=== PATIENT | female | born 1970 | race Caucasian/White ===

== ENCOUNTER 2017-07-17 10:52 | Emergency (ER) | payer OTHER ==
[~2017-07-17] VITALS: Ht 165.1 cm; Wt 86.2 kg
[2017-07-17] MEDS ORDERED: WELLBUTRIN XL300 MG PO (11:11)
[2017-07-17] MEDS ORDERED: ABILIFY30 MG PO (11:11)
[2017-07-17] MEDS ORDERED: CLONAZEPAM 0.50.5 M1 PO (11:11)
[2017-07-17] MEDS ORDERED: ZOLOFT50 MG PO (11:12)
[2017-07-17] MEDS ORDERED: TOPAMAX 100 MG100 MG PO (11:12)
[2017-07-17 12:08] LABS: ABSOLUTE BASOPHILS 0.1 thou/uL (0.0-0.2); ABSOLUTE EOSINOPHILS 0.2 thou/uL (0.0-0.7); ABSOLUTE LYMPHOCYTES 2.8 thou/uL (0.8-5.3); ABSOLUTE MONOCYTES 0.8 thou/uL (0.0-1.2); BASOPHILS 0.8 %; EOSINOPHILS 1.6 %; HEMATOCRIT 38.5 % (37.0-47.0); HEMOGLOBIN 12.7 gm/dL (12.0-15.0); LYMPHOCYTES 23.6 %; MCH 31.9 pg (26.0-34.0); MCV 96.8 fL (80.0-100.0); MONOCYTES 6.6 %; MPV 8.7 fl. (7.2-11.1); NUCLEATED RBCS 0 /100WBC; PLATELET COUNT* 215 thou/uL (150-400); POLYS 67.4 %; RBC 3.98 mil/uL (4.20-5.00); RDW-CV 13.1 % (10.5-14.5); WBC 11.9 thou/uL (4.0-11.0)
[2017-07-17 12:12] LABS: POTASSIUM 4.1 mmol/L (3.5-5.1)
[2017-07-17 12:17] LABS: ALBUMIN 3.7 g/dL (3.4-5.0); TOTAL BILIRUBIN 0.2 mg/dL (<0.1-1.0); TOTAL PROTEIN 7.6 g/dL (6.4-8.2)
[2017-07-17] MEDS ORDERED: CLEOCIN HCL300 MG PO (13:33)
[2017-07-17 13:38] VITALS: BP 120/69
== END 2017-07-17 13:39 | disposition home or self-care (01) ==
LOC: M.ERS 10:52
PROVIDERS: Nurse Practitioner Family
DX: S91.331A Puncture wound without foreign body, right foot, initial encounter (principal); L03.115 Cellulitis of right lower limb; F31.9 Bipolar disorder, unspecified; F41.9 Anxiety disorder, unspecified; M19.90 Unspecified osteoarthritis, unspecified site; J45.909 Unspecified asthma, uncomplicated; Z88.5 Allergy status to narcotic agent; Z88.8 Allergy status to other drugs, medicaments and biological substances; W22.8XXA Striking against or struck by other objects, initial encounter; Y93.89 Activity, other specified; Y92.89 Other specified places as the place of occurrence of the external cause; Y99.8 Other external cause status

== ENCOUNTER 2018-08-23 20:34 | Emergency (ER) | payer OTHER ==
[~2018-08-23] VITALS: Ht 165.1 cm; Wt 86.2 kg
[~2018-08-23 20:34] MED LIST: ABILIFY30 MG PO; CLEOCIN HCL300 MG PO; CLONAZEPAM 0.50.5 M1 PO; TOPAMAX 100 MG100 MG PO; WELLBUTRIN XL300 MG PO; ZOLOFT50 MG PO
[2018-08-23] MEDS ORDERED: VRAYLAR3 MG PO (20:57)
[2018-08-23] MEDS ORDERED: ATIVAN1 MG PO (21:00)
[2018-08-23 22:06] VITALS: BP 140/59
== END 2018-08-23 21:58 | disposition home or self-care (01) ==
LOC: M.ERS 20:34
DX: F44.4 Conversion disorder with motor symptom or deficit (principal); F31.9 Bipolar disorder, unspecified; F41.9 Anxiety disorder, unspecified; J45.909 Unspecified asthma, uncomplicated; M19.90 Unspecified osteoarthritis, unspecified site; Z88.5 Allergy status to narcotic agent; Z88.8 Allergy status to other drugs, medicaments and biological substances

== ENCOUNTER 2019-03-30 15:06 | Emergency (ER) | payer OTHER ==
[~2019-03-30] VITALS: Ht 165.1 cm; Wt 89.4 kg
[~2019-03-30 15:06] MED LIST changes: +ATIVAN1 MG PO; +VRAYLAR3 MG PO
[2019-03-30] MEDS ORDERED: BIPOLAR MEDICATION (15:25)
[2019-03-30] MEDS ORDERED: LITHATE5 MG PO (15:25)
[2019-03-30] MEDS ORDERED: ABILIFY 5 MG TAB5 MG PO (15:26)
[2019-03-30] MEDS ORDERED: KLONOPIN1 MG PO (15:26)
[2019-03-30 15:44] LABS: ABSOLUTE BASOPHILS 0.1 thou/uL (0.0-0.2); ABSOLUTE EOSINOPHILS 0.1 thou/uL (0.0-0.7); ABSOLUTE LYMPHOCYTES 2.3 thou/uL (0.8-5.3); ABSOLUTE MONOCYTES 0.6 thou/uL (0.0-1.2); ABSOLUTE NEUTROPHILS 11.7 thou/uL (1.6-8.1); BASOPHILS 0.6 %; EOSINOPHILS 0.9 %; HEMATOCRIT 42.8 % (37.0-47.0); HEMOGLOBIN 14.6 gm/dL (12.0-15.0); LYMPHOCYTES 15.2 %; MCH 32.4 pg (26.0-34.0); MCHC 34.1 g/dL (28.0-37.0); MCV 95.1 fL (80.0-100.0); MONOCYTES 4.4 %; MPV 8.4 fl. (7.2-11.1); NUCLEATED RBCS 0 /100WBC; PLATELET COUNT* 326 thou/uL (150-400); POLYS 78.9 %; RDW-CV 12.7 % (10.5-14.5); WBC 14.8 thou/uL (4.0-11.0)
[2019-03-30 15:52] LABS: CALCIUM 8.7 mg/dL (8.5-10.1); CREATININE 1.1 mg/dL (0.6-1.3); POTASSIUM 3.7 mmol/L (3.5-5.1)
[2019-03-30 15:53] LABS: APTT 24.5 Seconds (25.0-31.3); PROTIME 10.1 Seconds (9.20-11.50)
[2019-03-30 16:03] LABS: ALBUMIN 3.8 g/dL (3.4-5.0); TOTAL BILIRUBIN 0.4 mg/dL (<0.1-1.0); TOTAL PROTEIN 7.9 g/dL (6.4-8.2)
[2019-03-30 16:05] LABS: URINE BLOOD 3+ (Negative); URINE CLARITY CLEAR; URINE COLOR YELLOW; URINE GLUCOSE-RANDOM NEGATIVE (Negative); URINE KETONES NEGATIVE (Negative); URINE LEUKOCYTES-REFLEX NEGATIVE (Negative); URINE NITRITE-REFLEX NEGATIVE (Negative); URINE PROTEIN TRACE (Negative); URINE SPECIFIC GRAVITY 1.025 (1.005-1.030); URINE UROBILINOGEN 0.2 E.U./dl (0.2-1.0)
[2019-03-30 16:10] LABS: ICTOTEST (BILI CONFIRMATORY) Negative (Negative); URINE BILIRUBIN 1+ (Negative)
[2019-03-30 16:12] LABS: MUCUS 4-6 Moderate strn/LPF (None Seen); SQUAMOUS >10 Many /LPF (0-3)
[2019-03-30 16:13] LABS: URINE RBC 3-10 Few /HPF (0-2); URINE WBC-REFLEX 0-5 Rare /HPF (0-5)
[2019-03-30 16:14] LABS: CASTS None Seen /LPF (None Seen); CRYSTALS None Seen /LPF (None Seen)
[2019-03-30 16:59] VITALS: BP 124/69
[2019-03-30] MEDS ORDERED: ZOFRAN ODT4 MG SUBLING (17:01)
--- NOTE | 2019-03-31 13:08 | EKG ---
[place] [address] ELECTROCARDIOGRAM REPORT Name: JARRELL MCKNIGHT Room: [facility]#: [id number] Admission: 03/30/19 Attend Phys: Discharge: 03/30/19 Date of : 66 Report #: [id number] THIS REPORT FOR: //name// [facility] ED Test Date: 2019-03-30 Test Time: 15:28:44 Pat Name: JARRELL MCKNIGHT Department: Room: Gender: F Physician Representative: EDNA : 1970 Requested By: Juvencio Hubbard Order Number: [id number] MD: Darirn Roach Measurements Intervals [place] Rate: 89 P: 59 CO: 135 QRS: 64 QRSD: 91 T: 72 QT: 368 QTc: 448 Interpretive Statements Sinus rhythm nonspecific st changes Low voltage, precordial leads Baseline wander in lead(s) I,III,aVR,aVL No previous ECG available for comparison Electronically Signed On 03-31-2019 13:08:19 FRONT END APPLICATION DEVELOPER by Darrin Roach [email or web address] <ELECTRONICALLY SIGNED> By: Darrin Roach MD, [facility] 03/31/19 1308 1528 1528 Darrin Roach MD, [facility] /EPI
== END 2019-03-30 17:02 | disposition home or self-care (01) ==
LOC: M.ERS 15:06
PROVIDERS: Family Medicine
DX: B34.9 Viral infection, unspecified (principal); R11.2 Nausea with vomiting, unspecified; F31.9 Bipolar disorder, unspecified; Z88.5 Allergy status to narcotic agent; Z88.1 Allergy status to other antibiotic agents; Z88.2 Allergy status to sulfonamides; Z88.8 Allergy status to other drugs, medicaments and biological substances; Z98.890 Other specified postprocedural states

== ENCOUNTER 2019-04-17 15:52 | Emergency (ER) | payer OTHER ==
[~2019-04-17] VITALS: Ht 165.1 cm; Wt 88.9 kg
[~2019-04-17 15:52] MED LIST changes: +ABILIFY 5 MG TAB5 MG PO; +BIPOLAR MEDICATION; +KLONOPIN1 MG PO; +LITHATE5 MG PO; +ZOFRAN ODT4 MG SUBLING
[2019-04-17] MEDS ORDERED: WELLBUTRIN SR150 MG PO (16:20)
[2019-04-17] MEDS ORDERED: LITHIUM CARBON300 M6 PO (16:20)
[2019-04-17] MEDS ORDERED: HYDROXYZINE HCL25 M2 PO (16:21)
[2019-04-17] MEDS ORDERED: LAMOTRIGINE250 MG PO (16:21)
[2019-04-17 16:52] LABS: INFLUENZA A ANTIGEN Negative (Negative); INFLUENZA B ANTIGEN Negative (Negative)
[2019-04-17 17:21] LABS: URINE BILIRUBIN NEGATIVE (Negative); URINE BLOOD 2+ (Negative); URINE CLARITY CLEAR; URINE COLOR YELLOW; URINE GLUCOSE-RANDOM NEGATIVE (Negative); URINE KETONES NEGATIVE (Negative); URINE LEUKOCYTES-REFLEX NEGATIVE (Negative); URINE NITRITE-REFLEX NEGATIVE (Negative); URINE PROTEIN NEGATIVE (Negative); URINE SPECIFIC GRAVITY >= 1.030 (1.005-1.030); URINE UROBILINOGEN 0.2 E.U./dl (0.2-1.0)
[2019-04-17 17:26] LABS: HEMATOCRIT 43.2 % (37.0-47.0); HEMOGLOBIN 14.3 gm/dL (12.0-15.0); MCH 31.6 pg (26.0-34.0); MCHC 33.2 g/dL (28.0-37.0); MCV 95.2 fL (80.0-100.0); MPV 8.4 fl. (7.2-11.1); NUCLEATED RBCS 0 /100WBC; PLATELET COUNT* 299 thou/uL (150-400); RBC 4.54 mil/uL (4.20-5.00); WBC 13.3 thou/uL (4.0-11.0)
[2019-04-17 17:32] LABS: CALCIUM 8.5 mg/dL (8.5-10.1); CREATININE 1.1 mg/dL (0.6-1.3); POTASSIUM 3.9 mmol/L (3.5-5.1)
[2019-04-17 17:35] LABS: MUCUS >6 Heavy strn/LPF (None Seen); SQUAMOUS >10 Many /LPF (0-3)
[2019-04-17 17:36] LABS: CRYSTALS None Seen /LPF (None Seen); URINE RBC 3-10 Few /HPF (0-2); URINE WBC-REFLEX 0-5 Rare /HPF (0-5)
[2019-04-17 17:36] LABS: ALBUMIN 3.6 g/dL (3.4-5.0); TOTAL BILIRUBIN 0.6 mg/dL (<0.1-1.0); TOTAL PROTEIN 7.3 g/dL (6.4-8.2)
[2019-04-17 17:37] LABS: CASTS None Seen /LPF (None Seen)
[2019-04-17] MEDS ORDERED: ZOFRAN ODT4 MG PO (17:55)
[2019-04-17 18:03] LABS: ABSOLUTE LYMPHOCYTES 1.1 thou/uL (0.8-5.3); ABSOLUTE MONOCYTES 0.4 thou/uL (0.0-1.2); ABSOLUTE NEUTROPHILS 11.8 thou/uL (1.6-8.1); PLATELET ESTIMATE ADEQUATE
[2019-04-17 18:04] VITALS: BP 111/70
== END 2019-04-17 18:04 | disposition home or self-care (01) ==
LOC: M.ERS 15:52
PROVIDERS: Emergency Medicine
DX: K52.9 Noninfective gastroenteritis and colitis, unspecified (principal); F31.9 Bipolar disorder, unspecified; Z88.1 Allergy status to other antibiotic agents; Z88.2 Allergy status to sulfonamides; Z88.5 Allergy status to narcotic agent; Z88.8 Allergy status to other drugs, medicaments and biological substances; Z98.51 Tubal ligation status; Z98.890 Other specified postprocedural states

== ENCOUNTER 2019-10-19 21:20 | Emergency (ER) | payer OTHER ==
[~2019-10-19] VITALS: Ht 165.1 cm; Wt 95.3 kg
[~2019-10-19 21:20] MED LIST changes: +HYDROXYZINE HCL25 M2 PO; +LAMOTRIGINE250 MG PO; +LITHIUM CARBON300 M6 PO; +WELLBUTRIN SR150 MG PO; +ZOFRAN ODT4 MG PO
[2019-10-19] MEDS ORDERED: PROGESTERO50 MG/1 M3 IM (21:31)
[2019-10-19] MEDS ORDERED: PREMARIN0.45 MG PO (21:31)
[2019-10-19] MEDS ORDERED: PROGESTERONE100 MG PO (21:41)
[2019-10-19 21:42] LABS: URINE BILIRUBIN NEGATIVE (Negative); URINE BLOOD 1+ (Negative); URINE COLOR YELLOW; URINE GLUCOSE-RANDOM NEGATIVE (Negative); URINE KETONES NEGATIVE (Negative); URINE LEUKOCYTES-REFLEX NEGATIVE (Negative); URINE NITRITE-REFLEX NEGATIVE (Negative); URINE PROTEIN NEGATIVE (Negative); URINE SPECIFIC GRAVITY 1.015 (1.005-1.030); URINE UROBILINOGEN 0.2 E.U./dl (0.2-1.0)
[2019-10-19 21:43] LABS: URINE CLARITY HAZY
[2019-10-19 21:51] LABS: BACTERIA-REFLEX None Seen /HPF (None Seen); CASTS None Seen /LPF (None Seen); CRYSTALS None Seen /LPF (None Seen); SQUAMOUS 0-3 Few /LPF (0-3); URINE RBC 0-2 Rare /HPF (0-2); URINE WBC-REFLEX None Seen /HPF (0-5)
[2019-10-19 22:07] LABS: HEMATOCRIT 38.8 % (37.0-47.0); HEMOGLOBIN 13.3 gm/dL (12.0-15.0); MCH 32.4 pg (26.0-34.0); MCHC 34.2 g/dL (28.0-37.0); MCV 94.6 fL (80.0-100.0); MPV 8.4 fl. (7.2-11.1); NUCLEATED RBCS 0 /100WBC; PLATELET COUNT* 274 thou/uL (150-400); RDW-CV 13.1 % (10.5-14.5); WBC 10.6 thou/uL (4.0-11.0)
[2019-10-19 22:15] LABS: CALCIUM 8.3 mg/dL (8.5-10.1); CREATININE 1.1 mg/dL (0.6-1.3); POTASSIUM 3.9 mmol/L (3.5-5.1)
[2019-10-19 22:46] LABS: ABSOLUTE EOSINOPHILS 0.4 thou/uL (0.0-0.7); ABSOLUTE LYMPHOCYTES 3.2 thou/uL (0.8-5.3); ATYPICAL LYMPHS 2 %; PLATELET ESTIMATE ADEQUATE; TOXIC GRANULATION 1+
[2019-10-20] MEDS ORDERED: HYDROCODON-ACE1 EAC8 PO ×2 (00:23→00:29)
[2019-10-20 00:47] VITALS: BP 106/65
== END 2019-10-20 00:49 | disposition home or self-care (01) ==
LOC: M.ERS 21:20
PROVIDERS: Emergency Medicine
DX: D25.9 Leiomyoma of uterus, unspecified (principal); F31.9 Bipolar disorder, unspecified; Z98.51 Tubal ligation status; Z79.899 Other long term (current) drug therapy; Z88.2 Allergy status to sulfonamides; Z88.5 Allergy status to narcotic agent; Z88.1 Allergy status to other antibiotic agents; Z88.8 Allergy status to other drugs, medicaments and biological substances

== ENCOUNTER 2020-12-08 16:34 | Emergency (ER) | payer OTHER ==
[~2020-12-08] VITALS: Ht 165.1 cm; Wt 75.8 kg
[~2020-12-08 16:34] MED LIST changes: +HYDROCODON-ACE1 EAC8 PO; +PREMARIN0.45 MG PO; +PROGESTERO50 MG/1 M3 IM; +PROGESTERONE100 MG PO
[2020-12-08] MEDS ORDERED: ATIVAN0.5 M1 PO (16:44)
[2020-12-08 17:22] VITALS: BP 121/65
== END 2020-12-08 17:23 | disposition home or self-care (01) ==
LOC: M.ERS 16:34
DX: T80.62XA Other serum reaction due to vaccination, initial encounter (principal); Z98.51 Tubal ligation status; Z98.890 Other specified postprocedural states; Z90.89 Acquired absence of other organs; Z88.2 Allergy status to sulfonamides; Z88.1 Allergy status to other antibiotic agents; Z88.8 Allergy status to other drugs, medicaments and biological substances; Z88.5 Allergy status to narcotic agent; X58.XXXA Exposure to other specified factors, initial encounter